=== PATIENT | female | born 1975 | race American Indian/Alaskan Native ===

== ENCOUNTER 2018-06-07 17:34 | Emergency (ER) | payer BC ==
[2018-06-07 17:39] VITALS: BMI 44.4
[2018-06-07 17:43] VITALS: BP 123/69; RESP 18
--- NOTE | 2018-06-07 19:01 | ED PDOC ---
Arrival/HPI - General Chief Complaint: Dental Pain Time Seen by Provider: 06/07/18 17:36 Historian: Patient - History of Present Illness Narrative History of Present Illness (Text): 06/07/18 18:26 43-year-old female presents today with right upper molar dental fracture that occurred today. Patient states she was scheduled to have a root canal on that tooth in the beginning of June and today she tried to bite into something and cracked the tooth. She is complaining of pain to the upper right molar. She denies fevers or chills. No chest pain or shortness of breath. No dizziness or weakness. Patient states she took 2 Motrin earlier today without improvement. No other complaints. Quality: Aching, Throbbing Severity Level: 10 Past Medical History - Provider Review Nursing Documentation Reviewed: Yes - Travel History Have you recently traveled outside [place] w/in the past 3 mons?: No - Infectious Disease Hx of Infectious Diseases: None - Reproductive Currently : No - Psychiatric Hx Substance Use: No - Surgical History Hx Section: Yes (x1) - Anesthesia Hx Anesthesia Reactions: No Hx Malignant Hyperthermia: No Family/Social History - Physician Review Nursing Documentation Reviewed: Yes Family/Social History: Unknown Family HX Smoking Status: Never Smoked Hx Alcohol Use: No Hx Substance Use: No Allergies/Home Meds Allergies/Adverse Reactions: Allergies No Known Allergies Allergy (Verified 06/07/18 17:43) Review of Systems - Review of Systems Constitutional: absent: Fatigue, Fevers ENT: Other (dental fracture) Respiratory: absent: SOB, Cough Cardiovascular: absent: Chest Pain, Palpitations Gastrointestinal: absent: Abdominal Pain, Vomiting Skin: absent: Rash, Pruritis Neurological: absent: Headache, Dizziness Physical Exam Vital Signs Reviewed: Yes Vital Signs Temp Pulse Resp BP Pulse Ox 06/07/18 17:34 99.2 F 108 H 18 123/69 96 Temperature: Afebrile Blood Pressure: Normal Pulse: Tachycardic Respiratory Rate: Normal Appearance: Positive for: Well-Appearing, Non-Toxic, Comfortable Pain Distress: Mild Mental Status: Positive for: Alert and Oriented X 3 - Systems Exam Head: Present: Atraumatic Conjunctiva: Present: Normal Ears: Present: Normal, NORMAL TM Mouth: Present: Moist Mucous Membranes, Normal Lips, Normal Tounge. No: Drooling, Trismus, Normal Teeth (+ dental fracture noted to tooth #4) Pharnyx: Present: Normal. No: ERYTHEMA, EXUDATE, Peritonsilar Swelling Nose (External): Present: Atraumatic Nose (Internal): Present: Normal Inspection Neck: Present: Normal Range of Motion. No: Lymphadenopathy Respiratory/Chest: Present: Clear to Auscultation, Good Air Exchange. No: Respiratory Distress, Accessory Muscle Use Cardiovascular: Present: Regular Rate and Rhythm Neurological: Present: GCS=15 Skin: Present: Warm, Dry, Normal Color. No: Rashes Psychiatric: Present: Alert, Oriented x 3 Medical Decision Making ED Course and Treatment: 06/07/18 18:29 Patient is nontoxic well-appearing in no distress with stable vital signs No trismus or drooling, moist mucous membranes Amoxicillin Toradol Patient reassessment: Patient is feeling better after medications. I advised follow-up with the dentist within the next 2 days. I advised immediate return is symptoms worsen persist or if new concerning symptoms develop Patient verbalizes understanding of discharge instructions and need for immediate followup. Impression: Toothache, dental fracture Motrin every 6 hours as needed for pain Amoxicillin 1 tablet 3 times daily 10 days tramadol; 1 tablet every 6 hours as needed for moderate to severe pain; may cause drowsiness. Follow-up with the dentist within the next 2 days Return immediately if symptoms worsen persist or if new concerning symptoms develop Reassessment Condition: Re-examined, Improved Disposition/Present on Arrival - Present on Arrival Any Indicators Present on Arrival: No History of DVT/PE: No History of Uncontrolled Diabetes: No Urinary Catheter: No History of Decub. Ulcer: No History Surgical Site Infection Following: None - Disposition Have Diagnosis and Disposition been Completed?: Yes Diagnosis: Toothache, Broken or cracked tooth, nontraumatic Disposition: HOME/ ROUTINE Disposition Time: 19:04 Patient Plan: Discharge Patient Problems: Current Active Problems Problem Status Onset Broken or cracked tooth, nontraumatic Acute Toothache Acute Condition: GOOD Discharge Instructions (ExitCare): Fractured Tooth (DC), Dental Pain (DC) Additional Instructions: Motrin every 6 hours as needed for pain Amoxicillin 1 tablet 3 times daily 10 days tramadol; 1 tablet every 6 hours as needed for moderate to severe pain; may cause drowsiness. Follow-up with the dentist within the next 2 days Return immediately if symptoms worsen persist or if new concerning symptoms develop Prescriptions: Amoxicillin 500 mg PO TID #30 tab Ibuprofen [Motrin] 600 mg PO Q6H PRN #20 tab PRN Reason: pain/fever reduction traMADol [Ultram] 50 mg PO Q6H PRN #6 tab PRN Reason: moderate to severe pain Referrals: David Allen DMD [Staff Provider] - Follow up with primary Sabino Black DMD [Non-Staff] - Follow up with primary Meggan Lyman MD [Medical Doctor] - Follow up with primary [facility] [Outside] - Follow up with primary Forms: [facility] [employer] [facility] ([employer]), WORK NOTE
[2018-06-07 19:28] VITALS: PULSE 90
[2018-06-07 19:47] VITALS: TEMP 98.9; O2SAT 99
== END 2018-06-07 19:47 | disposition home or self-care (01) ==
LOC: ED 17:34
DX: S02.5XXA Fracture of tooth (traumatic), initial encounter for closed fracture (principal); X58.XXXA Exposure to other specified factors, initial encounter
CPT/HCPCS: 81025; 96372; 99283; J1885